=== PATIENT | male | born 1960 | race Caucasian/White ===

== ENCOUNTER 2019-10-21 09:32 | Emergency (ER) | payer OTHER ==
[~2019-10-21] VITALS: Ht 172.7 cm; Wt 77.1 kg
[2019-10-21 09:47] VITALS: BP 157/78
[2019-10-21] MEDS ORDERED: Ketorolac 30mg Inj IM ONE (10:00)
[2019-10-21] MEDS ORDERED: Methocarbamol 750mg tab ORAL ONE (10:00)
--- NOTE | 2019-10-21 10:18 | Emergency Room Report ---
History of Present Illness General Chief Complaint: Upper Extremity Injury Source: Patient Present Illness HPI 59-year-old male presents with left shoulder pain started yesterday after doing some work. States that he felt a pinch in his upper back. States he has pain radiating down his left arm. Dull, 6 out of 10. Worse with moving. Denies chest pain or shortness of breath. Denies any neck pain. No other aggravating relieving factors. Denies any other associated symptoms COVID-19 risk:Contact w/high r: No COVID-19 risk:Travel to affect: No Has patient experienced ho: No Allergies: Coded Allergies: No Known Allergies (Unverified , 10/21/19) Patient History Past Medical History: HTN Past Surgical History: none Pertinent Family History: none Social History: Denies: smoking, alcohol use, drug use Immunizations: UTD Reviewed Nursing Documentation: PMH: Agreed; PSxH: Agreed Nursing Documentation-PMH Hx Hypertension: Yes Review of Systems All Other Systems: negative except mentioned in HPI Physical Exam Vital Signs Date Time Temp Pulse Resp B/P (MAP) Pulse Ox O2 Delivery O2 Flow Rate FiO2 10/21/19 09:41 97.9 157 16 157/78 (104) 98 Room Air Sp02 EP Interpretation: reviewed, normal General Appearance: no apparent distress, alert, GCS 15, non-toxic Head: normocephalic, atraumatic Eyes: bilateral eye normal inspection, bilateral eye PERRL ENT: hearing grossly normal, normal pharynx, no angioedema, normal voice Neck: full range of motion, supple/symm/no masses Respiratory: chest non-tender, lungs clear, normal breath sounds, speaking full sentences Cardiovascular #1: regular rate, rhythm, no edema Cardiovascular #2: 2+ carotid (R), 2+ carotid (L), 2+ radial (R), 2+ radial (L) , 2+ dorsalis pedis (R), 2+ dorsalis pedis (L) Gastrointestinal: normal bowel sounds, non tender, soft, non-distended, no guarding, no rebound Rectal: deferred Genitourinary: normal inspection, no CVA tenderness Musculoskeletal: back normal, decreased range of motion, gait/station normal, tender - L shoulder Neurologic: alert, motor strength/tone normal, oriented x3, sensory intact, responsive, speech normal Psychiatric: judgement/insight normal, memory normal, mood/affect normal, no suicidal/homicidal ideation Reflexes: 3+ bicep (R), 3+ bicep (L), 3+ tricep (R), 3+ tricep (L), 3+ knee (R) , 3+ knee (L) Lymphatic: no adenopathy Procedures Splinting Splinting : Consent: Verbal Pre-Made Type: sling Pre-Proc Neuro Vasc Exam: normal Post-Proc Neuro Vasc Exam: normal Patient Tolerated: Well Complications: None Medical Decision Making Diagnostic Impression: Primary Impression: Shoulder pain Qualified Codes: M25.512 - Pain in left shoulder ER Course Hospital Course 59-year-old M presents to ED complaining of L shoulder pain Differential diagnoses include: Fracture, dislocation, sprain, contusion Clinical course Patient placed on stretcher. After initial history and physical, I ordered pain medications and Xrays of L shoulder Xrays read shows no acute fracture/dislocation. I discussed findings with the patient. Likely strain. Consider ligamentous injury. Placed in shoulder sling. States pain is improved after medication. Safe for discharge for close outpatient follow-up. I will provide Ortho referrals Diagnosis - shoulder pain Stable and discharged to home with prescription for Motrin, robaxin, lidoderm. weight bear as tolerated. Followup with PMD/ortho. Return to ED if symptoms recur or worsen Other X-Ray Diagnostic Results Other X-Ray Diagnostic Results : X-Ray ordered: L shoulder # of Views/Limited Vs Complete: 3 View Indication: Pain EP Interpretation: Yes Interpretation: no dislocation, no soft tissue swelling, no fractures Impression: No acute disease Electronically Signed by: Electronically signed by Andrew Trevino MD Last Vital Signs Date Time Temp Pulse Resp B/P (MAP) Pulse Ox O2 Delivery O2 Flow Rate FiO2 10/21/19 09:47 97.9 157 16 157/78 98 Room Air Status: improved Disposition: HOME, SELF-CARE Condition: Stable Scripts Methocarbamol* (ROBAXIN-750*) 750 Mg Tablet 750 MG PO TID, #21 TAB 0 Refills Prov: Andrew Trevino MD 10/21/19 Lidocaine Patch* (Lidoderm Patch*) 1 Each Adh..patch 1 PATCH TOPIC DAILY, #7 PATCH 0 Refills Patch(es) may remain in place for up to 12 hours in any 24-hour period. Prov: Andrew Trevino MD 10/21/19 Ibuprofen* (MOTRIN*) 600 Mg Tablet 600 MG ORAL Q8H PRN for For Pain, #30 TAB 0 Refills Prov: Andrew Trevino MD 10/21/19 Andrew Trevino MD Oct 21, 2019 10:18
--- NOTE | 2019-10-21 10:38 | Diagnostic Imaging Report ---
EXAM: XR Left Shoulder Complete, 2 or More Views CLINICAL HISTORY: PAIN TECHNIQUE: Two or more views of the left shoulder. COMPARISON: No relevant prior studies available. FINDINGS: Bones/joints: Old left posterior ribs 4, 5 and lateral 6 fractures. Mild acromioclavicular joint space osteophytes. Glenohumeral joint intact. No dystrophic calcifications. No dislocation. Soft tissues: Unremarkable. IMPRESSION: 1. No acute process. 2. Old rib injuries. Mild acromial clavicular joint space degenerative change.
[2019-10-21] MEDS ORDERED: IBUPROFEN600 MG ORAL (10:52)
[2019-10-21] MEDS ORDERED: LIDODERM700 M1 TOPIC (10:52)
[2019-10-21] MEDS ORDERED: ROBAXIN-750750 MG PO (10:52)
[2019-10-21 11:05] VITALS: BP 145/71
== END 2019-10-21 11:46 | disposition home or self-care (01) ==
LOC: EMR 10:21
DX: M25.512 Pain in left shoulder (principal); I10 Essential (primary) hypertension; M79.602 Pain in left arm
CPT/HCPCS: 73030; 96372; J1885; Z7502; 99283